=== PATIENT | male | born 1995 | race Caucasian/White ===

== ENCOUNTER 2017-07-11 18:05 | Emergency (ER) | payer OTHER ==
[2017-07-11 21:05] VITALS: BP 145/89
== END 2017-07-11 21:05 | disposition home or self-care (01) ==
LOC: ED 18:05
DX: F41.0 Panic disorder [episodic paroxysmal anxiety] (principal); R07.89 Other chest pain; F32.9 Major depressive disorder, single episode, unspecified

== ENCOUNTER 2017-09-25 12:02 | Emergency (ER) | payer OTHER ==
[~2017-09-25] VITALS: Ht 182.9 cm; Wt 85.5 kg
[2017-09-25 13:49] LABS: BASOPHIL % 0.2 % (0-2); PLATELET COUNT 339 x10^3mcL (130-400); RED CELL DISTRIBUTION WIDTH 12.5 % (11.5-14.5)
[2017-09-25 13:59] LABS: CALCIUM 9.4 mg/dL (8.5-10.1); CARBON DIOXIDE 29.8 mmol/L (21-32); CHLORIDE SERUM 103 mmol/L (98-107); CREATININE SERUM 0.7 mg/dL (0.7-1.3); GFR1 > 60 mL/min; GLUCOSE SERUM 99 mg/dL (74-106); POTASSIUM SERUM 3.8 mmol/L (3.5-5.1); SODIUM SERUM 139 mmol/L (136-145)
[2017-09-25 14:04] LABS: ALBUMIN 4.4 g/dL (3.4-5.0); ALKALINE PHOSPHATASE 75 U/L (46-116); ALT/SGPT 22 U/L (16-63); AMYLASE 35 U/L (25-115); AST/SGOT 18 U/L (15-37); BILIRUBIN TOTAL 0.75 mg/dL (0.20-1.00); LIPASE 85 IU/L (73-393); TOTAL PROTEIN, SERUM 8.2 g/dL (6.4-8.2)
[2017-09-25 14:55] VITALS: BP 125/70
== END 2017-09-25 14:55 | disposition home or self-care (01) ==
LOC: ED 12:02
PROVIDERS: Emergency Medicine
DX: R10.9 Unspecified abdominal pain (principal); R11.0 Nausea
CPT/HCPCS: 36415; J1885

== ENCOUNTER 2018-01-21 01:44 | Emergency (ER) | payer OTHER ==
[~2018-01-21] VITALS: Ht 182.9 cm; Wt 75.7 kg
[2018-01-21 01:50] VITALS: Ht 182.9 cm; Wt 75.7 kg
[2018-01-21 04:31] VITALS: BP 124/75
== END 2018-01-21 04:31 | disposition home or self-care (01) ==
LOC: ED 01:44
DX: K21.9 Gastro-esophageal reflux disease without esophagitis (principal)